=== PATIENT | female | born 1960 | race Two or more races ===

== ENCOUNTER 2018-08-25 05:46 | Day surgery (SDC) | payer OTHER ==
[~2018-08-25 05:46] MED LIST: BETIMOL5 M1 OP; CLONAZEPAM0.5 MG PO; COZAAR25 MG PO; METFORMIN HCL500 MG PO; PERCOCET 7.5-31 EACH PO; PROZAC20 MG PO; TRAVATAN Z5 ML OP; TYLENOL 120MG120 MG
== END 2018-08-25 15:35 | disposition home or self-care (01) ==
LOC: CIR.AMB 05:46
DX: N20.1 Calculus of ureter (principal)

== ENCOUNTER 2019-06-17 08:00 | Inpatient (IN) | payer OTHER ==
[~2019-06-17] VITALS: Ht 157.5 cm; Wt 72.6 kg
[2019-06-17] MEDS ORDERED: PERCOGESIC PO (10:03)
[2019-06-22] MEDS ORDERED: SEVERE ALLERGY1 EACH (08:47)
== END 2019-06-24 11:08 | disposition home or self-care (01) | DRG 661 ==
LOC: ADM 08:00 → EDSTATUS 08:00 → O/R 06-22 07:00 → SURH 06-22 08:00 → SURG 06-22 19:09
PROVIDERS: ADMIT Urology
PROC: 0T778DZ Dilation of Left Ureter with Intraluminal Device, Via Natural or Artificial Opening Endoscopic (ICD-10-PCS; 2019-06-22)
PROC: 0TC18ZZ Extirpation of Matter from Left Kidney, Via Natural or Artificial Opening Endoscopic (ICD-10-PCS; principal; 2019-06-22 12:30)
DX: N20.0 Calculus of kidney (principal)